=== PATIENT | male | born 1965 | race Caucasian/White ===

== ENCOUNTER 2019-02-27 16:08 | Emergency (ER) | payer MEDICAID, OTHER ==
[~2019-02-27] VITALS: Ht 177.8 cm; Wt 72.6 kg
[2019-02-27 16:14] VITALS: BP 115/84
--- NOTE | 2019-02-27 16:17 | NUR ---
ED Nurse Note: pt brought by RA from street due to SOB for last couple hrs. intermittent dry cough noted. breath sounds clear. respirations even and non-labored noted. able to speak full sentence without difficulty breathing. maintained >94% of pulse oximetry in RA. skin warm to touch. no open wound noted. will wait for the further order.
[2019-02-27 16:40] LABS: BASOPHILS % (AUTO) 1.8 % (0.0-2.0); EOSINOPHILS % (AUTO) 5.9 % (0.0-3.0); HEMATOCRIT 41.2 % (42.0-52.0); HEMOGLOBIN 13.2 G/DL (14.2-18.0); LYMPHOCYTES % (AUTO) 21.9 % (20.0-45.0); MEAN CORPUSCULAR VOLUME 85 FL (80-99); MONOCYTES % (AUTO) 12.7 % (1.0-10.0); NEUTROPHILS % (AUTO) 57.8 % (45.0-75.0); PLATELET COUNT 119 K/UL (150-450); RED BLOOD COUNT 4.86 M/UL (4.70-6.10); RED CELL DISTRIBUTION WIDTH 14.1 % (11.6-14.8); WHITE BLOOD COUNT 4.2 K/UL (4.8-10.8)
--- NOTE | 2019-02-27 16:52 | Emergency Room Report ---
History of Present Illness General Chief Complaint: Dyspnea/Respdistress Source: Patient Present Illness HPI 53 YO male presents to the ED C/O SOB with progressive sputum production z 1 week. pt. reports moderate exacerbation today which prompted him to call 911. pt. reports some persistent LE edema. He denies pain. States he takes Lasix daily. pt. reports hx of CHF and is supposed to be taking Carvedilol however he self d/c'd after looking up the side effects online.Pt. reports he has been having some epigastric abdominal pain as well which he has been taking OTC acid medications for. Denies Fevers or chills, CP, Palpitations, LOC, AMS, dizziness , Changes in Vision, Sensation, paresthesias, or a sudden severe headache. Allergies: Coded Allergies: SULFAMETHOXAZOLE (Unverified Allergy, Unknown, 05/20/15) TRIMETHOPRIM (Unverified Allergy, Unknown, 05/20/15) Patient History Past Medical History: see triage record, psych hx Past Surgical History: none Pertinent Family History: none Reviewed Nursing Documentation: PMH: Agreed; PSxH: Agreed Nursing Documentation-PMH Past Medical History: No History, Except For Hx Hypertension: No Hx Pacemaker: No Hx Asthma: Yes Hx COPD: No Hx Diabetes: No Hx Cancer: No Hx Gastrointestinal Problems: No Hx Dialysis: No Hx Neurological Problems: No Hx Cerebrovascular Accident: No Hx Seizures: No Review of Systems All Other Systems: negative except mentioned in HPI Physical Exam Vital Signs Date Time Temp Pulse Resp B/P (MAP) Pulse Ox O2 Delivery O2 Flow Rate FiO2 02/27/19 16:03 98.2 97 22 115/84 96 Room Air Sp02 EP Interpretation: reviewed, normal General Appearance: no apparent distress, alert, GCS 15, non-toxic Head: normocephalic, atraumatic Eyes: bilateral eye normal inspection, bilateral eye PERRL ENT: hearing grossly normal, normal voice Neck: full range of motion Respiratory: chest non-tender, lungs clear, normal breath sounds, no respiratory distress, no wheezing, speaking full sentences Cardiovascular #1: regular rate, rhythm, edema - 1+ pitting bilaterally Gastrointestinal: normal bowel sounds, non tender, soft Musculoskeletal: back normal, gait/station normal, normal range of motion, non- tender Neurologic: alert, oriented x3, responsive, motor strength/tone normal, sensory intact, speech normal, grossly normal Psychiatric: judgement/insight normal Skin: normal color, no rash, warm/dry, well hydrated Medical Decision Making PA Attestation Dr. Fry is my supervising Physician whom patient management has been discussed with. Diagnostic Impression: Primary Impression: SOB (shortness of breath) Additional Impressions: History of heart failure Amphetamine abuse ER Course 53 YO male presents to the ED C/O SOB with progressive sputum production z 1 week. pt. reports moderate exacerbation today which prompted him to call 911. pt. reports some persistent LE edema. He denies pain. States he takes Lasix daily. pt. reports hx of CHF and is supposed to be taking Carvedilol however he self d/c'd after looking up the side effects online.Pt. reports he has been having some epigastric abdominal pain as well which he has been taking OTC acid medications for. Denies Fevers or chills, CP, Palpitations, LOC, AMS, dizziness , Changes in Vision, Sensation, paresthesias, or a sudden severe headache. Ddx considered but are not limited to CT, pneumonia, contusion, costochondritis , PE, ACS, Shoulder strain, Chest wall contusion. aortic dissection. Vital signs: are WNL, pt. is afebrile H&PE are most consistent with mild exacerbation of CHF. and non compliance with medications. ORDERS: - EK bpm NSR, with some T-wave inversion in lateral leads. -CBC: unremarkable -CMP: unremarkable -BNP:5063 -- may be chronic elevation given normal cxr and hx of chf/ meth use. -Troponin: 0.00 WNL -UDS: positive for amphetamines ED INTERVENTIONS: - Albuterol Nebs -Pt. reports improvement of his symptoms. Pt. continues to be oxygenating well. Pt. is stable for very close outpatient follow up and cardiology follow-up. DISCHARGE: At this time pt. is stable for d/c to home. Will provide printed patient care instructions, and any necessary prescriptions. Care plan and follow up instructions have been discussed with the patient prior to discharge. Labs Test 02/27/19 16:30 02/27/19 17:25 White Blood Count 4.2 K/UL (4.8-10.8) Red Blood Count 4.86 M/UL (4.70-6.10) Hemoglobin 13.2 G/DL (14.2-18.0) Hematocrit 41.2 % (42.0-52.0) Mean Corpuscular Volume 85 FL (80-99) Mean Corpuscular Hemoglobin 27.1 PG (27.0-31.0) Mean Corpuscular Hemoglobin Concent 31.9 G/DL (32.0-36.0) Red Cell Distribution Width 14.1 % (11.6-14.8) Platelet Count 119 K/UL (150-450) Mean Platelet Volume 9.9 FL (6.5-10.1) Neutrophils (%) (Auto) 57.8 % (45.0-75.0) Lymphocytes (%) (Auto) 21.9 % (20.0-45.0) Monocytes (%) (Auto) 12.7 % (1.0-10.0) Eosinophils (%) (Auto) 5.9 % (0.0-3.0) Basophils (%) (Auto) 1.8 % (0.0-2.0) Sodium Level 138 MMOL/L (136-145) Potassium Level 4.3 MMOL/L (3.5-5.1) Chloride Level 105 MMOL/L (98-107) Carbon Dioxide Level 23 MMOL/L (21-32) Anion Gap 10 mmol/L (5-15) Blood Urea Nitrogen 25 mg/dL (7-18) Creatinine 1.4 MG/DL (0.55-1.30) Estimat Glomerular Filtration Rate 53.0 mL/min (>60) Glucose Level 125 MG/DL (74-106) Calcium Level 8.5 MG/DL (8.5-10.1) Total Bilirubin 0.8 MG/DL (0.2-1.0) Aspartate Amino Transf (AST/SGOT) 90 U/L (15-37) Alanine Aminotransferase (ALT/SGPT) 85 U/L (12-78) Alkaline Phosphatase 94 U/L (46-116) Total Creatine Kinase 71 U/L (26-308) Troponin I 0.025 ng/mL (0.000-0.056) Pro-B-Type Natriuretic Peptide 5068 pg/mL (0-125) Total Protein 7.2 G/DL (6.4-8.2) Albumin 3.2 G/DL (3.4-5.0) Globulin 4.0 g/dL Albumin/Globulin Ratio 0.8 (1.0-2.7) Urine Opiates Screen Negative (NEGATIVE) Urine Barbiturates Screen Negative (NEGATIVE) Phencyclidine (PCP) Screen Negative (NEGATIVE) Urine Amphetamines Screen Positive (NEGATIVE) Urine Benzodiazepines Screen Negative (NEGATIVE) Urine Cocaine Screen Negative (NEGATIVE) Urine Marijuana (THC) Screen Negative (NEGATIVE) EKG Diagnostic Results EP Interpretation: Dr. Fry Rate: normal - 91 bpm Rhythm: NSR ST Segments: no acute changes Other Impression T-wave inversion in lateral leads. ASA given to the pt in ED: No PA Scribe Text This Interpretation was scribed by ANGEL Peres. Chest X-Ray Diagnostic Results Chest X-Ray Diagnostic Results : Chest X-Ray Ordered: Yes # of Views/Limited/Complete: 1 View Indication: Shortness of Breath EP Interpretation: Yes PA Xray: Interpretation reviewed, by supervising MD, and agrees with findings. Interpretation: no consolidation, no effusion, no pneumothorax, other - cardiomegaly Impression: Other - abnormal Electronically Signed by: Mel Peres PA-C Last Vital Signs Date Time Temp Pulse Resp B/P (MAP) Pulse Ox O2 Delivery O2 Flow Rate FiO2 02/27/19 16:14 98.2 97 22 115/84 96 Room Air Status: improved Disposition: HOME, SELF-CARE Condition: Stable Scripts Acetaminophen* (TYLENOL EXTRA STRENGTH*) 500 Mg Tablet 500 MG ORAL Q6H, #20 TAB 0 Refills Prov: eMl Peres 02/27/19 Referrals: Hor[facility] Negron [facility] + [facility] Patient Instructions: Shortness of Breath, [id number] Additional Instructions: Take medications as directed. Follow up with a Primary Care Provider and COMPUTER FORENS[employer] INVESTIGATOR in 3-5 days, even if your symptoms have resolved. --Please review list of primary care clinics, if you do not already have a primary care provider Return sooner to ED if new symptoms occur, or current symptoms become worse. - Please note that this Emergency Department Report was dictated using [employer] booth operator technology software, occasionally this can lead to erroneous entry secondary to interpretation by the dictation equipment. Mel Peres Feb 27, 2019 16:52
[2019-02-27 16:53] LABS: ANION GAP 10 mmol/L (5-15); BLOOD UREA NITROGEN 25 mg/dL (7-18); CALCIUM 8.5 MG/DL (8.5-10.1); CARBON DIOXIDE 23 MMOL/L (21-32); CHLORIDE 105 MMOL/L (98-107); CREATININE 1.4 MG/DL (0.55-1.30); POTASSIUM 4.3 MMOL/L (3.5-5.1); SODIUM 138 MMOL/L (136-145)
[2019-02-27 16:58] LABS: ALANINE AMINOTRANSFERASE 85 U/L (12-78); ALBUMIN 3.2 G/DL (3.4-5.0); ALBUMIN/GLOBULIN RATIO 0.8 (1.0-2.7); ALKALINE PHOSPHATASE 94 U/L (46-116); ASPARTATE AMINO TRANSFERASE 90 U/L (15-37); BILIRUBIN,TOTAL 0.8 MG/DL (0.2-1.0); CREATINE KINASE 71 U/L (26-308)
[2019-02-27] MEDS ORDERED: Albuterol ud Inhalation HHN ONE (17:00)
--- NOTE | 2019-02-27 17:12 | Diagnostic Imaging Report ---
Indication: Chest pain Technique: One view of the chest Comparison: none Findings: Heart is enlarged. Lungs and pleural spaces are clear. Impression: Cardiomegaly. No acute process
[2019-02-27] MEDS ORDERED: LORazepam 1mg tab ORAL ONE (17:45)
[2019-02-27] MEDS ORDERED: TYLENOL EXTRA500 MG ORAL (18:28)
[2019-02-27 18:51] VITALS: BP 121/78
--- NOTE | 2019-02-27 18:53 | NUR ---
ER DISCHARGE NOTE: Patient is cleared to be discharged per ERMD with bike, pt is aox4, on room air, with stable vital signs. pt was given dc and prescription instructions, pt was able to verbalize understanding, pt id band and iv site removed without complications. pt is able to ambulate with steady gait. pt took all belongings.
--- NOTE | 2019-03-02 15:41 | Cardiology Report ---
APPROVED REPORT EKG Measurement Heart [id number] MD [id number] Normal sinus rhythm Possible Left atrial enlargement Anterior infarct, age undetermined Abnormal ECG
== END 2019-02-27 18:54 | disposition home or self-care (01) ==
LOC: EDBD 16:08 → EMR 16:50
DX: R06.02 Shortness of breath (principal); F15.10 Other stimulant abuse, uncomplicated; I50.9 Heart failure, unspecified; Z88.2 Allergy status to sulfonamides; Z88.8 Allergy status to other drugs, medicaments and biological substances; R10.13 Epigastric pain; R60.9 Edema, unspecified; I51.7 Cardiomegaly
CPT/HCPCS: 36415; 71045; 80053; 80307; 82550; 83880; 84484; 85025; 93005; 94640; 94664; 99284

== ENCOUNTER 2019-10-16 07:50 | Emergency (ER) | payer MEDICAID, OTHER ==
[~2019-10-16] VITALS: Ht 177.8 cm; Wt 77.1 kg
[~2019-10-16 07:50] MED LIST: TYLENOL EXTRA500 MG ORAL
[2019-10-16 08:01] VITALS: BP 136/92
--- NOTE | 2019-10-16 08:01 | NUR ---
ED Nurse Note: Pt brought in from the street by ANUP [facility] 61 for cough/congestion onset a couple days ago. [facility] notes pt initial oxygen sat was 92% and had wheezing. ANUP gave one albuteral treatment en route. Pt is currently at 96% oxygen sat in the ER. Pt is breathing normal and unlabored, speaking in full sentences. Pt aaox4. Pt denies permanent residing address. Pt placed on cafeteria monitor and in hospital gown. Will continue to monitor.
--- NOTE | 2019-10-16 08:05 | NUR ---
ED Nurse Note: Pt was brought in with one bicycle and two large bags of clothes and bedding. pt belongings placed at bedside with pt.
[2019-10-16] MEDS ORDERED: Ipratropium 0.02% Inh Soln 2.5ml UD HHN ONE ×2 (08:15→12:45)
[2019-10-16] MEDS ORDERED: Albuterol ud Inhalation HHN ONE ×2 (08:15→12:45)
[2019-10-16] MEDS ORDERED: Promethazine/Codeine 5ml UD ORAL ONE (08:15)
--- NOTE | 2019-10-16 08:24 | NUR ---
ED Nurse Note: Xray at bedside. Pt started on breathing treatment by RT.
--- NOTE | 2019-10-16 08:30 | NUR ---
ED Nurse Note: Pt reports history of drug use. He states he last used meth three days ago.
--- NOTE | 2019-10-16 08:50 | NUR ---
ED Nurse Note: Labs drawn and blood/cultures sent to lab.
[2019-10-16 09:18] LABS: EOSINOPHILS % (AUTO) 4.3 % (0.0-3.0); HEMATOCRIT 48.1 % (42.0-52.0); HEMOGLOBIN 15.4 G/DL (14.2-18.0); LYMPHOCYTES % (AUTO) 18.8 % (20.0-45.0); MEAN CORPUSCULAR VOLUME 92 FL (80-99); MONOCYTES % (AUTO) 7.3 % (1.0-10.0); NEUTROPHILS % (AUTO) 68.5 % (45.0-75.0); PLATELET COUNT 166 K/UL (150-450); RED BLOOD COUNT 5.25 M/UL (4.70-6.10); RED CELL DISTRIBUTION WIDTH 16.8 % (11.6-14.8); WHITE BLOOD COUNT 7.8 K/UL (4.8-10.8)
[2019-10-16 09:21] LABS: ANION GAP 8 mmol/L (5-15); BLOOD UREA NITROGEN 24 mg/dL (7-18); CALCIUM 9.3 MG/DL (8.5-10.1); CARBON DIOXIDE 29 MMOL/L (21-32); CHLORIDE 105 MMOL/L (98-107); CREATININE 1.3 MG/DL (0.55-1.30); POTASSIUM 4.3 MMOL/L (3.5-5.1); SODIUM 142 MMOL/L (136-145)
--- NOTE | 2019-10-16 09:27 | NUR ---
ED Nurse Note: Pt able to urinate at bedside with urinal. Urine specimen sent to lab.
[2019-10-16 09:41] LABS: APPEARANCE,URINE CLEAR; BILIRUBIN, URINE NEGATIVE (NEGATIVE); GLUCOSE, URINE (UA) NEGATIVE (NEGATIVE); KETONES,URINE NEGATIVE (NEGATIVE); LEUKOCYTE ESTERASE ,URINE NEGATIVE (NEGATIVE); NITRITE,URINE NEGATIVE (NEGATIVE); PH,URINE 5 (4.5-8.0); PROTEIN,URINE 3+ (NEGATIVE); UROBILINOGEN,URINE NORMAL MG/DL (0.0-1.0)
[2019-10-16 09:42] LABS: COLOR,URINE YELLOW
[2019-10-16 09:43] LABS: ALANINE AMINOTRANSFERASE 137 U/L (12-78); ALBUMIN 3.7 G/DL (3.4-5.0); ALBUMIN/GLOBULIN RATIO 0.7 (1.0-2.7); ALKALINE PHOSPHATASE 117 U/L (46-116); ASPARTATE AMINO TRANSFERASE 134 U/L (15-37); BILIRUBIN,DIRECT 0.6 MG/DL (0.0-0.3); BILIRUBIN,TOTAL 1.3 MG/DL (0.2-1.0); CKMB 4.6 NG/ML (0.0-3.6); CREATINE KINASE 112 U/L (26-308)
[2019-10-16 10:15] VITALS: BP 136/103
--- NOTE | 2019-10-16 10:49 | Diagnostic Imaging Report ---
Indication: Shortness of breath Technique: One view of the chest Comparison: 02/27/2019 Findings: There is apparent mild elevation and partial obscuration of the right hemidiaphragm. There is a hazy opacity the right lung base. The heart is enlarged. The left lung and pleural space are clear. No definite congestion Impression: Apparent elevation and obscuration of right hemidiaphragm, suspect subpulmonic effusion. Hazy opacity at the right lung base likely represents combination of pleural fluid and consolidation. Cardiomegaly Findings previously discussed by phone with Dr. Reyes
--- NOTE | 2019-10-16 11:30 | NUR ---
ED Nurse Note: Pt resting in bed at this time. No acute distress. Will continue to monitor.
--- NOTE | 2019-10-16 13:04 | Emergency Room Report ---
History of Present Illness General Chief Complaint: Upper Respiratory Illness Source: Patient Present Illness HPI Patient presents with complaints of cough and congestion shortness of breath Ongoing for the past several days Denies any chest pain denies any vomiting however reports decreased oral intake Denies any focal weakness denies any dysuria or frequency denies any abdominal pain he reports subjective fevers denies any rash Allergies: Coded Allergies: SULFAMETHOXAZOLE (Unverified Allergy, Unknown, 05/20/15) TRIMETHOPRIM (Unverified Allergy, Unknown, 05/20/15) Patient History Past Medical History: see triage record Reviewed Nursing Documentation: PMH: Agreed; PSxH: Agreed Nursing Documentation-PMH Past Medical History: No History, Except For Hx Hypertension: No Hx Pacemaker: No Hx Asthma: Yes Hx COPD: No Hx Diabetes: No Hx Cancer: No Hx Gastrointestinal Problems: No Hx Dialysis: No Hx Neurological Problems: No Hx Cerebrovascular Accident: No Hx Seizures: No Review of Systems All Other Systems: negative except mentioned in HPI Physical Exam Vital Signs Date Time Temp Pulse Resp B/P (MAP) Pulse Ox O2 Delivery O2 Flow Rate FiO2 10/16/19 07:43 97.2 97 20 136/92 (107) 94 Room Air 10/16/19 08:40 21 Sp02 EP Interpretation: reviewed, normal General Appearance: mild distress - appears tachypneic Head: normocephalic, atraumatic Eyes: bilateral eye PERRL ENT: dry mucus membranes Neck: supple Respiratory: no retraction, crackles - Bilaterally Cardiovascular #1: tachycardia Gastrointestinal: non tender, soft Genitourinary: no CVA tenderness Musculoskeletal: normal inspection, back normal Neurologic: alert, oriented x3 Psychiatric: normal inspection Skin: other - Appears disheveled Lymphatic: no adenopathy Procedures Critical Care Time Critical Care Time 30 minutes with respiratory discomfort concern for respiratory failure hypoxia not including any procedural times Medical Decision Making Diagnostic Impression: Primary Impression: Pneumonia Additional Impression: Hypoxia ER Course Patient is a fairly complex patient with multiple differential to consideration including but not limited to cardiac cardiopulmonary and vascular emergencies Patient's x-ray is concerning for right-sided infiltrate On room air the patient does desaturate to 88% Extensive blood work is initiated broad-spectrum antibiotics provided and patient requested for transfer given [place] [facility] [place] [facility] [place] Labs Test 10/16/19 08:50 10/16/19 09:25 White Blood Count 7.8 K/UL (4.8-10.8) Red Blood Count 5.25 M/UL (4.70-6.10) Hemoglobin 15.4 G/DL (14.2-18.0) Hematocrit 48.1 % (42.0-52.0) Mean Corpuscular Volume 92 FL (80-99) Mean Corpuscular Hemoglobin 29.3 PG (27.0-31.0) Mean Corpuscular Hemoglobin Concent 32.0 G/DL (32.0-36.0) Red Cell Distribution Width 16.8 % (11.6-14.8) Platelet Count 166 K/UL (150-450) Mean Platelet Volume 8.7 FL (6.5-10.1) Neutrophils (%) (Auto) 68.5 % (45.0-75.0) Lymphocytes (%) (Auto) 18.8 % (20.0-45.0) Monocytes (%) (Auto) 7.3 % (1.0-10.0) Eosinophils (%) (Auto) 4.3 % (0.0-3.0) Basophils (%) (Auto) 1.0 % (0.0-2.0) Sodium Level 142 MMOL/L (136-145) Potassium Level 4.3 MMOL/L (3.5-5.1) Chloride Level 105 MMOL/L (98-107) Carbon Dioxide Level 29 MMOL/L (21-32) Anion Gap 8 mmol/L (5-15) Blood Urea Nitrogen 24 mg/dL (7-18) Creatinine 1.3 MG/DL (0.55-1.30) Estimat Glomerular Filtration Rate 57.5 mL/min (>60) Glucose Level 124 MG/DL (74-106) Lactic Acid Level 1.90 mmol/L (0.4-2.0) Calcium Level 9.3 MG/DL (8.5-10.1) Total Bilirubin 1.3 MG/DL (0.2-1.0) Direct Bilirubin 0.6 MG/DL (0.0-0.3) Aspartate Amino Transf (AST/SGOT) 134 U/L (15-37) Alanine Aminotransferase (ALT/SGPT) 137 U/L (12-78) Alkaline Phosphatase 117 U/L (46-116) Total Creatine Kinase 112 U/L (26-308) Creatine Kinase MB 4.6 NG/ML (0.0-3.6) Creatine Kinase MB Relative Index 4.1 Total Protein 8.8 G/DL (6.4-8.2) Albumin 3.7 G/DL (3.4-5.0) Globulin 5.1 g/dL Albumin/Globulin Ratio 0.7 (1.0-2.7) Urine Color Yellow Urine Appearance Clear Urine pH 5 (4.5-8.0) Urine Specific [place] 1.020 (1.005-1.035) Urine Protein 3+ (NEGATIVE) Urine Glucose (UA) Negative (NEGATIVE) Urine Ketones Negative (NEGATIVE) Urine Blood Negative (NEGATIVE) Urine Nitrite Negative (NEGATIVE) Urine Bilirubin Negative (NEGATIVE) Urine Urobilinogen Normal MG/DL (0.0-1.0) Urine Leukocyte Esterase Negative (NEGATIVE) Urine RBC 2-4 /HPF (0 - 0) Urine WBC 0-2 /HPF (0 - 0) Urine Squamous Epithelial Cells Moderate /LPF (NONE/OCC) Urine Bacteria Moderate /HPF (NONE) Rhythm Strip Diag. Results EP Interpretation: yes Rate: 102 Rhythm: no PVC's, no ectopy, other - Sinus tach Chest X-Ray Diagnostic Results Chest X-Ray Diagnostic Results : Chest X-Ray Ordered: Yes # of Views/Limited/Complete: 1 View Indication: Shortness of Breath EP Interpretation: Yes Interpretation: no pneumothorax, other - Cardiomegaly, right-sided effusion right-sided infiltrate, Impression: Other - Right lower lobe pneumonia Electronically Signed by: Richard Reyes DO Last Vital Signs Date Time Temp Pulse Resp B/P (MAP) Pulse Ox O2 Delivery O2 Flow Rate FiO2 10/16/19 12:48 109 24 98 Room Air 21 110 24 96 10/16/19 10:15 97.2 136/103 Status: improved Disposition: XFER SHT-TRM HOSP Condition: Serious Referrals: [facility],REFERR[facility] (PCP) Richard Reyes DO Oct 16, 2019 13:04
--- NOTE | 2019-10-16 13:32 | NUR ---
ED Nurse Note: Report given to PETRA Jarrett at [facility] for continuation of care.
[2019-10-16 13:33] VITALS: BP 140/90
[2019-10-16 15:24] VITALS: BP 142/99
--- NOTE | 2019-10-16 15:42 | NUR ---
ER DISCHARGE NOTE: Pt is cleared to be transfered to [facility] by ERMD for continuation of care. Pt is breathing normal, unlabored, aaox4, speaking in full sentences and ambulatory. Pt 20g iv on R ac is patent and intact. Pt is being transported by [facility] ALS unit 117. Report given to PETRA Jarrett. Pt has one bicycle locked up in dirty utility and was instructed to return for it upon discharge from [facility]. Pt verbalized understanding of instructions.
--- NOTE | 2019-10-17 15:25 | Cardiology Report ---
APPROVED REPORT EKG Measurement Heart [id number] DC [id number] Sinus tachycardia Possible Left atrial enlargement Rightward axis Anterior infarct, age undetermined Abnormal ECG
== END 2019-10-16 15:24 | disposition short-term general hospital (02) ==
LOC: EDBD 07:50 → EMR 08:22
DX: J18.9 Pneumonia, unspecified organism (principal); R09.02 Hypoxemia; Z88.2 Allergy status to sulfonamides; Z88.8 Allergy status to other drugs, medicaments and biological substances; I51.7 Cardiomegaly
CPT/HCPCS: 36415; 71045; 80053; 81003; 82248; 82550; 82553; 83605; 85025; 87040; 87086; 93005; 94640; 94664; 96365; J1956; Z7502; 99284